=== PATIENT | male | born 2000 | race Caucasian/White ===

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

== ENCOUNTER 2021-11-11 17:40 | Emergency (ER) | payer OTHER, SELFPAY ==
[2021-11-11 17:40] VITALS: BP 135/95; PULSE 77; RESP 16; TEMP 36.4; O2SAT 97; BMI 18.8
== END 2021-11-11 19:00 | disposition left against medical advice (07) ==
LOC: ED 19:09
PROVIDERS: PCP Pediatrics
DX: K08.89 Other specified disorders of teeth and supporting structures (principal); Z53.21 Procedure and treatment not carried out due to patient leaving prior to being seen by health care provider

== ENCOUNTER 2022-02-04 15:42 | Emergency (ER) | payer OTHER, SELFPAY ==
[2022-02-04 15:43] VITALS: BP 127/103; PULSE 74; RESP 16; TEMP 36.8; O2SAT 100; BMI 17.6
--- NOTE | 2022-02-04 16:00 | EDS_ITS ---
HPI <MIKE Garcia - Last Filed: 02/04/22 19:18> History of Present Illness Chief Complaint: Abd Pain Narrative Narrative: 21-year-old male with no significant medical history presents to the emergency department with complaints of 3 days of generalized abdominal cramping, nausea and vomiting. Patient denies any fevers or chills. Patient denies any sick contacts or recent antibiotic use. He states that over the last 24 hours he has been unable to keep even water down. He says he feels tight in his stomach, then he vomits. He does pass gas however he feels slightly constipated. PFSH <MIKE Garcia - Last Filed: 02/04/22 19:18> [facility] Medical History no medical history Home Medications dicyclomine 20 mg PO BID #20 tab 02/04/22 [Rx Last Taken Unknown] ondansetron 4 mg PO Q8H PRN #10 tab 02/04/22 [Rx Last Taken Unknown] Allergy/AdvReac Type Severity Reaction Status Date / Time No Known Allergies Allergy Verified 02/04/22 15:43 Social History (Updated 10/19/19 @ 13:34 by Otto Bower NP, [employer]) Smoking Status: Unknown if ever smoked ROS <MIKE Garcia - Last Filed: 02/04/22 19:18> ROS ED ROS Narrative Constitutional: Negative for fever, chills, weight loss, weakness Eyes: Negative for vision loss, vision change, double vision ENT: Negative for any sore throat, ear pain, congestion Cardiovascular: Negative for any chest pain, tightness, palpitations Respiratory: Negative for any cough, sputum production, hemoptysis, dyspnea, dyspnea on exertion, orthopnea Gastrointestinal: Negative for any diarrhea, constipation, blood in stool, blood in vomit. Positive for abdominal pain, nausea and vomiting : Negative for any urinary frequency, dysuria, retention, blood in urine Muscle skeletal: Negative for any muscle joint pain, stiffness, myalgias, arthralgias, neck pain, back pain Neurological: Negative for any headache, syncope, numbness or tingling, dizziness Skin: Negative for any rashes, lumps, itching, abrasions, lacerations Psychiatric: Negative for any depression, anxiety, stress, suicidal ideation, homicidal ideation Hematologic: Negative for any easy bruising, excessive bruising, easy bleeding Allergies: Negative for any eczema, hives, rash EXAM <MIKE Garcia - Last Filed: 02/04/22 19:18> Physical Exam Narrative Exam Narrative: Vital signs reviewed. HEET: Head normocephalic atraumatic, TMs clear bilaterally. Posterior pharynx is clear, dry mucous membranes. Nares clear bilaterally. Neck: Supple with no lymphadenopathy or tenderness. No signs of meningismus, negative jolt sign. Cardiac: Regular rate and rhythm no murmurs gallops or rubs, equal peripheral pulses bilaterally. Respiratory: Lungs clear to auscultation bilaterally. No chest tenderness. Abdomen: Soft, nontender, nondistended. No abdominal bruit or pulsatile masses. No hepatosplenomegaly Extremities: No peripheral edema, no signs of gross trauma or deformity. Active full range of motion of all extremities. Neuro: Cranial nerves II through XII intact, no focal neurological deficits. Skin: Clean dry and intact with no rash, purpura, petechiae, vesicles or pustules. Backs/flank: No CVA tenderness, no midline spinal tenderness, no deformity. Psych: Normal mood and affect. No SI, HI or acute psychosis. Const Vital Signs: 02/04/22 15:43 Temperature 98.2 F Temperature Source Temporal Pulse Rate 74 Respiratory Rate 16 Blood Pressure 127/103 H Blood Pressure Mean 111 Pulse Ox 100 Oxygen Delivery Method Room Air Positive well nourished and well developed General Appearance ED: well developed <Dr. Raghav Santizo, DO - Last Filed: 02/04/22 22:40> Physical Exam Const Vital Signs: 02/04/22 15:43 Temperature 98.2 F Temperature Source Temporal Pulse Rate 74 Respiratory Rate 16 Blood Pressure 127/103 H Blood Pressure Mean 111 Pulse Ox 100 Oxygen Delivery Method Room Air MDM <MIKE Garcia - Last Filed: 02/04/22 19:18> [facility] Narrative Medical decision making narrative: Patient arrives in no distress, patient co mplains of nausea, vomiting for 3 days. Patient's abdominal exam was unremarkable, patient did receive basic laboratory values, patient's CBC showed slight leukocytosis white blood count of 11.6. Patient's sodium was slightly low at 133, BUN slightly elevated 19. Patient shows no organ failure. Patient did receive IV fluids, IV Toradol, IV Zofran. Patient continued to have pain, he was redosed with IV morphine, Phenergan. On reassessment, the patient's mother was in the room, she states that this has been ongoing for several months, she has seen specialist for this issue. Per the mother, this has been ongoing and he is getting worse. She would like the patient to have a CAT scan. Patient did receive a CAT scan to rule out any further pathology. Patient did have a second liter of fluid hung. Patient did receive a CT scan of the abdomen pelvis, this showed no evidence of masses bowel obstruction, abscess, free fluid or free air. No evidence of renal calcifications or obstructive uropathy. No radiodense calcifications of the gallbladder. At this time, patient be diagnosed with abdominal pain, uncertain etiology. He will have a referral to Dr. Contreras who is an adult sohail roenterologist. He will be given Zofran for home as well as Bentyl. He is instructed return for any worsening symptoms. Patient stable for discharge. Lab Data Labs: Laboratory Results - last 24 hr 02/04/22 02/04/22 15:56 15:56 WBC 11.6 H RBC 4.73 Hgb 15.3 Hct 43.6 MCV 92.2 MCH 32.3 H MCHC 35.1 RDW Std Deviation 41.6 RDW Coeff of Genaro 12.2 Plt Count 336 MPV 8.8 Immature Gran % (Auto) 0.300 Neut % (Auto) 67.3 Lymph % (Auto) 22.3 Hayes % (Auto) 8.2 Eos % (Auto) 1.5 Baso % (Auto) 0.4 Absolute Neuts (auto) 7.8 H Absolute Lymphs (auto) 2.58 Nucleated RBC % 0 Sodium 133 L Potassium 3.6 Chloride 101 Carbon Dioxide 24.0 Anion Gap 8 BUN 19 H Creatinine 0.92 Estim Creat Clear Calc 106.70 Est GFR (MDRD) Af Amer 134 Est GFR (MDRD) Non-Af 111 BUN/Creatinine Ratio 20.6 H Glucose 110 H Calcium 9.4 Total Bilirubin 0.80 AST 19 ALT 27 Alkaline Phosphatase 81 Total Protein 7.5 Albumin 4.3 Globulin 3.2 Albumin/Globulin Ratio 1.3 Lipase 83 Radiography Diagnostic Testing: Clinical Impression(s) from Imaging Studies Abdomen/Pelvis CT 02/04/22 18:15 IMPRESSION: 1. No evidence of masses bowel obstruction, abscess, free fluid or free air. 2. No evidence of renal calcifications or obstructive uropathy. 3. No radiodense calcifications in the gallbladder. Electronically Signed: Quentin Dukes MD at 18:59 EDT , <Dr. Raghav Santizo, DO - Last Filed: 02/04/22 22:40> [facility] Narrative Medical decision making narrative: I have personally performed a face to face assessment of the patient and have reviewed the TEX Note. I performed a substantive portion of the visit including all aspects of the following. My lucero findings include: History: Patient is a 21-year-old male who presents with nausea, vomiting, and diarrhea for the past 3 days. Patient also admits to diffuse abdominal pain. Patient denies any fevers or chills. Patient denies any hematemesis or coffee- ground emesis. Patient denies any melena or hematochezia. Patient denies any urinary complaints. Patient states nothing makes his pain better or worse. Exam: Vital signs are stable. Patient is afebrile. Patient is in no acute distress. Oral mucosa is pink and moist. Neck is supple. Trachea is heart was regular rate and rhythm. Lungs are clear and equal bilaterally. Abdomen is soft. Bowel sounds are normal. There is diffuse tenderness. There is no rebound or guarding noted. Cranial nerves II through XII are intact. There are no focal motor or sensory deficits. Medical Decision Making: Patient was given IV fluids, Toradol, and Zofran. CBC shows a mild leukocytosis of 11.6. Comprehensive metabolic profile was essentially within normal limits. Lipase was normal. Patient's IV infiltrated. It is unclear if he received the Toradol and Zofran. Patient was given a dose of morphine and Zofran. CT scan of the abdomen pelvis was obtained. There is no acute process noted. There is no evidence of obstruction or perforation. There is no obstructive uropathy noted. This was interpreted by the radiologist and reviewed by myself. Patient was feeling better on reevaluation. Patient was instructed to follow-up with his primary care physician in 3 to 5 days for further evaluation. Patient and mother understood and were agreeable with the plan. All questions were answered. Lab Data Attestation: I reviewed the patient's lab results. Labs: Laboratory Results - last 24 hr 02/04/22 02/04/22 15:56 15:56 WBC 11.6 H RBC 4.73 Hgb 15.3 Hct 43.6 MCV 92.2 MCH 32.3 H MCHC 35.1 RDW Std Deviation 41.6 RDW Coeff of Genaro 12.2 Plt Count 336 MPV 8.8 Immature Gran % (Auto) 0.300 Neut % (Auto) 67.3 Lymph % (Auto) 22.3 Hayes % (Auto) 8.2 Eos % (Auto) 1.5 Baso % (Auto) 0.4 Absolute Neuts (auto) 7.8 H Absolute Lymphs (auto) 2.58 Nucleated RBC % 0 Sodium 133 L Potassium 3.6 Chloride 101 Carbon Dioxide 24.0 Anion Gap 8 BUN 19 H Creatinine 0.92 Estim Creat Clear Calc 106.70 Est GFR (MDRD) Af Amer 134 Est GFR (MDRD) Non-Af 111 BUN/Creatinine Ratio 20.6 H Glucose 110 H Calcium 9.4 Total Bilirubin 0.80 AST 19 ALT 27 Alkaline Phosphatase 81 Total Protein 7.5 Albumin 4.3 Globulin 3.2 Albumin/Globulin Ratio 1.3 Lipase 83 Radiography Diagnostic Testing: Clinical Impression(s) from Imaging Studies Abdomen/Pelvis CT 02/04/22 18:15 IMPRESSION: 1. No evidence of masses bowel obstruction, abscess, free fluid or free air. 2. No evidence of renal calcifications or obstructive uropathy. 3. No radiodense calcifications in the gallbladder. Electronically Signed: Quentin Dukes MD at 18:59 EDT , Discharge Plan Triage Chief Complaint: Abd Pain ED Midlevel Provider: Silver Low ED Provider: Raghav Santizo Dx/Rx/DC Orders Clinical Impression: Abdominal pain Instructions: Abdominal Pain Prescriptions: New dicyclomine 20 mg tablet 20 mg PO BID Qty: 20 RF: 0 ondansetron 4 mg tablet,disintegrating 4 mg PO Q8H PRN (Reason: nausea and vomiting) Qty: 10 RF: 0 Primary Care Provider: Agnieszka Mcmanus Referrals: Agnieszka Mcmanus MD [Primary Care Provider] - Friend,DO Carlos [STAFF PHYSICIAN] - (Please follow-up with gastroenterology) Activity Restrictions/Additional Instructions: Please follow-up with gastroenterology Print Language: Romanian Disposition Disposition: Home, Self Care Discharge Date/Time: 02/04/22 19:24
[2022-02-04] MEDS: Ketorolac 15 MG/ML Vial IV (16:03)
[2022-02-04] MEDS: 0.9% Normal Saline 1,000 ML 1000 ML IV (16:03)
[2022-02-04] MEDS: Ondansetron 4 MG/2 ML Vial IV ×2 (16:03→17:09)
[2022-02-04 16:12] LABS: Absolute Lymphocyte Count 2.58 X10^3/uL (0.83-4.51); Absolute Neutrophil Count 7.8 X10^3/uL (2.0-7.7); Basophil# 0.05 X10^3/uL; Basophil% 0.4 % (0-1); Eosinophil# 0.17 X10^3/uL; Eosinophils% 1.5 % (0-5); Hematocrit 43.6 % (40-54); Hemoglobin 15.3 g/dL (13.0-16.5); Lymphocyte # 2.58 X10^3/ul (0.83-4.51); Lymphocyte % 22.3 % (19-41); Mean Corp Hgb Conc 35.1 g/dL (32-36); Mean Corpuscular Hgb 32.3 pg (27.0-32.0); Mean Corpuscular Volume 92.2 fL (80-94); Mean Platelet Vol. 8.8 fl (6.2-12.0); Monocyte# 0.95 X10^3/uL; Monocyte% 8.2 % (0-10); NRBC Flagged by Analyzer 0 % (0-5); Neutrophil # 7.77 X10^3/uL (2.7-7.7); Neutrophil % 67.3 % (47-70); Platelet Count 336 K/mm3 (150-450); RBC Distribution Width CV 12.2 % (11.6-14.6); RBC Distribution Width SD 41.6 fl (35.1-43.9); Red Blood Count 4.73 M/mm3 (4.6-6.2); White Blood Count 11.6 K/mm3 (4.4-11.0)
[2022-02-04 16:52] LABS: ALB/GLOB Ratio 1.3 RATIO (0.9-2.4); AST(SGOT) 19 U/L (15-37); Alanine Aminotransfer ALT/SGPT 27 U/L (16-61); Albumin, Serum 4.3 g/dL (3.2-5.0); Alkaline Phosphatase 81 U/L (45-117); Anion Gap 8 (5-15); BUN 19 mg/dL (7-18); BUN/Creat Ratio 20.6 RATIO (10-20); Calcium,Total 9.4 mg/dL (8.5-10.1); Chloride 101 mmol/L (98-107); Creatinine, Serum 0.92 mg/dL (0.70-1.30); EST Glomerular Filtration Rate 111 mL/min (>60); Est Glom Filt Rate - Afr Amer 134 mL/min (>60); Globulin 3.2 g/dL (2.2-4.2); Glucose 110 mg/dL (74-106); Lipase 83 U/L (73-393); Potassium 3.6 mmol/L (3.5-5.1); Protein, Total 7.5 g/dL (6.4-8.2); Sodium Level 133 mmol/L (136-145)
[2022-02-04] MEDS: Morphine 4 MG/ML Syringe IV (17:09)
[2022-02-04] MEDS: 0.9% Normal Saline 1,000 ML 999 ML IV (18:08)
--- NOTE | 2022-02-04 18:15 | CT_ITS ---
INDICATION: abdominal pain EXAMINATION: CT ABDOMEN AND PELVIS with CONTRAST - CT Abdomen And Pelvis W/ Contrast Injection TECHNIQUE: Multiple axial images were obtained of the abdomen following administration of IV contrast. Planar reconstructions obtained. A radiation dose optimization technique was used for this scan. RADIATION DOSAGE (If Supplied By Facility): CTDIvol = ( 7.76 ) mGy, DLP = ( 281.45 ) mGycm IV Contrast dosage and agent: 100 mL Isovue 300 Oral contrast: None. COMPARISON: None. FINDINGS: LOWER THORAX: Lungs are clear. Normal appearance of cardiac contour. No pericardial effusion. HEPATOBILIARY: Liver: The liver is homogeneous and shows no evidence of focal lesion. Gallbladder: No radiodense calcifications noted in the gallbladder. No pericholecystic fluid. Pancreas: Pancreas is normal size configuration and density. No mass is noted. Spleen: The spleen is homogeneous and normal in size. . BOWEL: Stomach: The stomach is normal in size configuration, no evidence of focal masses, abnormal calcifications. No hiatal hernia noted. Bowel: Small and large have normal configuration, no masses or bowel obstruction noted. Scattered diverticula are present. No evidence diverticulitis. Appendix: The visualized appendix has normal appearance.: GENITOURINARY: Adrenals: Both adrenal glands are normal in size. Kidneys: Kidneys appear symmetric in size. No calcifications are seen in the collecting system. There is no hydronephrosis or surrounding fluid. Bladder: Normal Pelvic organs: The visualized pelvic organs are normal in size and configuration. No masses or adenopathy noted. RETROPERITONEUM: There is normal appearance of the abdominal aorta and inferior vena cava. LYMPH NODES: No evidence of retroperitoneal or para-aortic masses fluid collections or adenopathy. PERITONEAL CAVITY: No ascites noted ANTERIOR ABDOMINAL WALL: Normal, no hernia identified. BONES AND SOFT TISSUES: The skeleton shows no evidence for fractures or destructive lesions. OTHER: None CT/Abdomen/Pelvis W IV Cont ONLY IMPRESSION: 1. No evidence of masses bowel obstruction, abscess, free fluid or free air. 2. No evidence of renal calcifications or obstructive uropathy. 3. No radiodense calcifications in the gallbladder. Electronically Signed: Quentin Dukes MD at 18:59 EDT ,
== END 2022-02-04 19:24 | disposition home or self-care (01) ==
PROVIDERS: Nurse Practitioner; Emergency Provider Emergency Medicine; PCP Pediatrics; Visit Provider Emergency Medicine
DX: R10.9 Unspecified abdominal pain (principal); R11.2 Nausea with vomiting, unspecified; R19.7 Diarrhea, unspecified
CPT/HCPCS: 74177; 80053; 83690; 85025; 96361; 96374; 96375; 96376; 99284; J7030; Q9967; A4216; J2405

== ENCOUNTER 2024-07-23 08:42 | Emergency (ER) | payer OTHER, SELFPAY ==
[2024-07-23 08:42] VITALS: BP 134/100; PULSE 130; PULSE 155; RESP 20; TEMP 36.4; O2SAT 97; BMI 17.8
[2024-07-23 09:16] LABS: Absolute Lymphocyte Count 3.02 X10^3/uL (0.83-4.51); Absolute Neutrophil Count 9.9 X10^3/uL (2.0-7.7); Basophil# 0.06 X10^3/uL; Basophil% 0.4 % (0-1); Eosinophil# 0.06 X10^3/uL; Eosinophils% 0.4 % (0-5); Hematocrit 48.3 % (40-54); Hemoglobin 16.5 g/dL (13.0-16.5); Lymphocyte # 3.02 X10^3/ul (0.83-4.51); Lymphocyte % 21.1 % (19-41); Mean Corp Hgb Conc 34.2 g/dL (32-36); Mean Corpuscular Hgb 32.5 pg (27.0-32.0); Mean Corpuscular Volume 95.3 fL (80-94); Mean Platelet Vol. 8.5 fl (6.2-12.0); Monocyte# 1.21 X10^3/uL; Monocyte% 8.4 % (0-10); NRBC Flagged by Analyzer 0 % (0-5); Neutrophil # 9.91 X10^3/uL (2.7-7.7); Neutrophil % 69.3 % (47-70); Platelet Count 382 K/mm3 (150-450); RBC Distribution Width CV 13.2 % (11.6-14.6); RBC Distribution Width SD 46.5 fl (35.1-43.9); Red Blood Count 5.07 M/mm3 (4.6-6.2); White Blood Count 14.3 K/mm3 (4.4-11.0)
[2024-07-23] MEDS: 0.9% Normal Saline (1000mL) 1,000 ML 1000 ML IV (09:20)
[2024-07-23] MEDS: Ondansetron 4 MG/2 ML Vial IV (09:21)
[2024-07-23] MEDS: LORazepam 2 MG/ML Syringe 1 MG IV (09:22)
[2024-07-23] MEDS: Famotidine 200 MG/20 ML MDV 20 MG in 0.9% Normal Saline (Pres. free 8 ML 300 MG IV (09:24)
--- NOTE | 2024-07-23 09:33 | EDS_ITS ---
HPI History of Present Illness Chief Complaint: Nausea/Vomiting Informant: patient and parent Narrative Narrative: 23-year-old male presenting to the emergency room with vomiting and hematemesis. Patient states that at least monthly for the past 2 years he has been having episodes of vomiting. He states that this episode began yesterday at work. He notes bright red blood. He notes upper abdominal discomfort. No fevers no change in stool. He is not currently on any medications. Mom states he has had EGDs but they have not found anything and is wondering if he needs an EGD while he is having his symptoms. Patient is a daily cannabis user. He utilizes vape tobacco. PFSH PFS Home Medications ?Medication ?Instructions ?Recorded ?Last Taken ?Type metoclopramide HCl 10 mg tablet 10 mg PO Q6H PRN nausea and 07/23/24 Unknown Rx (Reglan) vomiting #20 tabs omeprazole 40 mg capsule,delayed 40 mg PO BID #28 caps 07/23/24 Unknown Rx release Allergy/AdvReac Type Severity Reaction Status Date / Time No Known Allergies Allergy Verified 07/23/24 08:43 Surgical History (Updated 07/23/24 @ 09:[address] Otto Mariano DO) S/P tonsillectomy Social History Smoking Status: Current every day smoker tobacco type: e-cigarettes ROS ROS ED Constitutional Constitutional ED: Denies chills, fever(s) or weight loss Eyes Eyes: Denies change in vision or diplopia ENT ENT ED: Denies ear pain, rhinorrhea or sore throat Cardiovascular Cardiovascular: Denies chest pain, orthopnea, palpitations or racing heartbeat Respiratory/Chest Respiratory/Chest: Denies cough, dyspnea or orthopnea Gastrointestinal Gastrointestinal: Reports abdominal pain, nausea and vomiting; Denies constipation or diarrhea Genitourinary Genitourinary ED: Denies dysuria, hematuria or urinary frequency Musculoskeletal Musculoskeletal: Denies arthralgias or myalgias Integumentary Denies abscess or rash Neurologic Neurologic: Denies headache(s) or weakness Psychiatric Psychiatric: Denies anxiety, depression, suicidal ideation or suicidal thoughts Endocrine Endocrinology: Denies polydipsia, polyphagia or polyuria Allergic/Immunologic Allergic/Immunologic ED: Denies mouth swelling, tongue swelling or urticaria EXAM Physical Exam Const Vital Signs: 07/23/24 08:42 07/23/24 08:42 07/23/24 10:42 Temperature 97.6 F L Temperature Source Oral Pulse Rate 155 H 130 H 84 Respiratory Rate 20 H 16 Blood Pressure 134/100 H 119/67 Blood Pressure Mean 111 84 Pulse Ox 97 99 Oxygen Delivery Method Room Air Room Air 07/23/24 12:00 Temperature Temperature Source Pulse Rate 89 Respiratory Rate 16 Blood Pressure 123/68 H Blood Pressure Mean 86 Pulse Ox 98 Oxygen Delivery Method Positive well nourished and well developed General Appearance ED: well developed and NAD HEENT Reports normocephalic, head/scalp atraumatic and moist mucous membranes Eyes PERRL and EOMs intact bilaterally Neck no lymphadenopathy, supple and no JVD Resp normal respiratory effort and clear to auscultation bilaterally Cardio regular rate, regular rhythm and no murmurs Rate: tachycardic GI Palpation: soft and tender epigastric; Negative for guarding or rebound tenderness present Back/Spine no CVA tenderness and normal ROM Extremity normal to inspection General Extremety ED: Negative for edema General Extremity: Negative for edema Neuro oriented x3 and CN's II-XII intact bilaterally Sensorium / Orientation: alert Motor Exam: strength 5/5 throughout Psych mental status grossly normal Mood & Affect: Negative for depressed or tearful Skin no rashes or lesions noted and no wounds MDM MDM MDM Narrative Medical decision making narrative: Differential diagnosis includes but not limited to anemia Kaylan-Rodriguez tear esophageal varices gastritis pancreatitis biliary colic cyclic vomiting syndrome gastroparesis White count is elevated 14.3 hemoglobin 16.5 lipase is 22 creatinine 1.24 potassium slightly low at 3.[address] of the abdomen pelvis with IV contrast was obtained and is negative for acute findings. Patient received IV fluids Zofran lorazepam and famotidine. Patient is resting comfortably. At this point I do not see a strong need to admit the patient. I do recommend that he stop consumption of cannabis. Place him on Reglan as needed as well as some omeprazole. Recommend GI follow-up. History & Record Review Discussion w/independent historian: Patient and Family Lab Data Attestation: I reviewed the patient's lab results. Labs: Laboratory Results - last 24 hr 07/23/24 09:10 WBC 14.3 H RBC 5.07 Hgb 16.5 Hct 48.3 MCV 95.3 H MCH 32.5 H MCHC 34.2 RDW Std Deviation 46.5 H RDW Coeff of Genaro 13.2 Plt Count 382 MPV 8.5 Immature Gran % (Auto) 0.400 Neut % (Auto) 69.3 Lymph % (Auto) 21.1 [place] % (Auto) 8.4 Eos % (Auto) 0.4 Baso % (Auto) 0.4 Absolute Neuts (auto) 9.9 H Absolute Lymphs (auto) 3.02 Nucleated RBC % 0 Sodium 137 Potassium 3.4 L Chloride 100 Carbon Dioxide 28.0 Anion Gap 9 BUN 15 Creatinine 1.24 Estim Creat Clear Calc 78.90 Est GFR (MDRD) Af Amer 93 Est GFR (MDRD) Non-Af 77 BUN/Creatinine Ratio 12.1 Glucose 106 Calcium 9.9 Total Bilirubin 0.80 Direct Bilirubin 0.24 AST 18 ALT 21 Alkaline Phosphatase 89 Total Protein 8.6 H Albumin 4.8 Globulin 3.8 Lipase 22 Radiography Diagnostic Testing: Clinical Impression(s) from Imaging Studies Abdomen/Pelvis CT 07/23/24 11:00 IMPRESSION: No acute abnormality identified. Electronically Signed: Shanika Burton MD at 11:40 EST Reading Location ID and State: [facility] / [place] Tel , Service support , Discharge Plan Triage Chief Complaint: Nausea/Vomiting ED Provider: Otto Mariano Dx/Rx/DC Orders Clinical Impression: Cannabis hyperemesis syndrome concurrent with and due to cannabis abuse, Abdominal pain Instructions: ED Cyclic Vomiting Syndrome Prescriptions: New metoclopramide HCl [Reglan] 10 mg tablet 10 mg PO Q6H PRN (Reason: nausea and vomiting) Qty: 20 0RF omeprazole 40 mg capsule,delayed release(DR/EC) 40 mg PO BID Qty: 28 0RF Primary Care Provider: Care Physician,No Primary Referrals: Friend,Carlos, DO [Med Staff - Active Staff] - As soon as possible Care Physician,No Primary [Primary Care Provider] - Print Language: Lao Disposition Disposition: Home, Self Care
[2024-07-23 09:34] LABS: AST(SGOT) 18 U/L (15-37); Alanine Aminotransfer ALT/SGPT 21 U/L (16-61); Albumin, Serum 4.8 g/dL (3.2-5.0); Alkaline Phosphatase 89 U/L (45-117); Anion Gap 9 (5-15); BUN 15 mg/dL (7-18); BUN/Creat Ratio 12.1 RATIO (10-20); Bilirubin, Direct 0.24 mg/dL (0.00-0.30); Calcium,Total 9.9 mg/dL (8.5-10.1); Chloride 100 mmol/L (98-107); Creatinine, Serum 1.24 mg/dL (0.70-1.30); EST Glomerular Filtration Rate 77 mL/min (>60); Est Glom Filt Rate - Afr Amer 93 mL/min (>60); Globulin 3.8 g/dL (2.2-4.2); Glucose 106 mg/dL (74-106); Lipase 22 U/L (13-75); Potassium 3.4 mmol/L (3.5-5.1); Protein, Total 8.6 g/dL (6.4-8.2); Sodium Level 137 mmol/L (136-145)
--- NOTE | 2024-07-23 10:13 | CM.ED ---
Social work Reason for referral: no PCP Referral source: case find This SW entered patient's room, identifying self and role at [facility]. Patient agreed to SW visit and permission given to speak with patient's mother, Maegan, at bedside. Patient discussed having stomach issues resulting in him presenting to the ED. Patient's mother reported patient has continually struggled with abdominal pain and vomiting. Patient denied having a PCP, but expressed understanding that he needed to get into see one soon. 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 Patient's mother stated she has been encouraging patient to get a PCP for years now. 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 Patient's father reportedly told patient he cannot return to work until he has a doctor's note, so patient stated he will plan to get a PCP. Resources provided were [facility] provider directory and [facility] information. Patient encouraged to make an appointment with a PCP soon. Patient and patient's mother denied other needs. Per patient's request, SW his parents' contacts in [employer] due to them not being together anymore. Verified phone numbers and updated in [employer]. Shruthi Barksdale, RAT EXTERMINATOR, WAX CUTTER
[2024-07-23 10:42] VITALS: BP 119/67; PULSE 84; RESP 16; O2SAT 99
--- NOTE | 2024-07-23 11:00 | CT_ITS ---
HISTORY: abdominal pain, vomiting, and leukocytosis. TECHNIQUE: Helically acquired images were obtained of the abdomen and pelvis after the intravenous administration of 100 mL Isovue-370. A radiation dose optimization technique was used for this scan. 340 images. COMPARISON: 02/04/2022. FINDINGS: LOWER CHEST: Lung bases clear with mild blebs. BOWEL: Bowel including appendix nondilated. No focal pericolonic inflammatory change observed. PERITONEUM: No significant ascites. LIVER: No enhancing mass. GALLBLADDER/BILIARY TREE: Gallbladder present. SPLEEN/PANCREAS: Homogeneous and nonenlarged. ADRENAL GLANDS/KIDNEYS: Unremarkable. VESSELS: Abdominal aorta nondilated. PELVIC ORGANS: Unremarkable. BONES: Intact. CT/Abdomen/Pelvis W IV Cont ONLY IMPRESSION: No acute abnormality identified. Electronically Signed: Shanika Burton MD at 11:40 EST ,
[2024-07-23 12:00] VITALS: BP 123/68; PULSE 89; RESP 16; O2SAT 98
[2024-07-23 12:23] VITALS: BP 123/68; PULSE 89; RESP 16; TEMP 36.6; O2SAT 98
== END 2024-07-23 12:28 | disposition home or self-care (01) ==
PROVIDERS: Emergency Provider Emergency Medicine; Visit Provider Emergency Medicine
DX: R11.2 Nausea with vomiting, unspecified (principal); F12.10 Cannabis abuse, uncomplicated; F17.290 Nicotine dependence, other tobacco product, uncomplicated; R10.9 Unspecified abdominal pain
CPT/HCPCS: 74177; 80048; 80076; 83690; 85025; 96365; 96366; 96375; 99283; J7030; Q9967; A4216; J2405; J3490